=== PATIENT | male | born 1960 | race Caucasian/White ===

== ENCOUNTER 2024-09-20 14:56 | Emergency (ER) | payer OTHER, SELFPAY ==
[2024-09-20 15:06] VITALS: BP 137/83; PULSE 95; RESP 16; TEMP 36.3; O2SAT 100
--- NOTE | 2024-09-20 15:17 | ED.SKABFB ---
HPI - Skin/Abscess/Foreign Bdy General Chief complaint: Skin/Abscess/Foreign Body Stated complaint: RASH Time Seen by Provider: 09/20/24 15:17 Source: patient Mode of arrival: ambulatory Limitations: no limitations History of Present Illness HPI narrative: 63 yo M presents with shingles rash to R side torso for 4 days. All systems reviewed and negative except as noted above. Related Data Home Medications ?Medication ?Instructions ?Recorded ?Confirmed ?Last Taken ?Type No Home Medications 09/20/24 09/20/24 Unknown History Allergies Allergy/AdvReac Type Severity Reaction Status Date / Time No Known Allergies Allergy Verified 09/20/24 15:04 Review of Systems Review of Systems: CONSTITUTIONAL: Denies fever, chills, or sweats. EYES: Denies visual changes, redness, or discharge. ENT: Denies rhinorrhea, congestion, sore throat, or otalgia. CARDIOVASCULAR: Denies chest pain, palpitations, or edema. RESPIRATORY: Denies cough or dyspnea. GASTROINTESTINAL: Denies abdominal pain, nausea, vomiting, or diarrhea. GENITOURINARY: Denies dysuria or hematuria. SKIN: Denies itching. Patient reports painful rash to right torso. MUSCULOSKELETAL: Denies back pain, joint pain, or myalgia. NEUROLOGIC: Denies headache, numbness, or weakness. PSYCHIATRIC: Denies anxiety or depression. All other systems reviewed are negative, except as documented in HPI. PMFSH Social History Social History Smoking status: Never smoker Alcohol intake: current Comments At time of signature, agree with nursing past medical, surgical, social and family history. There is no relevant family history pertinent to the presenting complaint. Exam Narrative: GENERAL: This is a well-nourished, well-developed patient, in no apparent distress. HEAD: normocephalic, atraumatic. EYES: PERRL. Sclera clear/white. Vision is grossly intact. EARS: External ears normal NOSE: External nose normal NECK: Neck supple, non-tender without lymphadenopathy, masses or thyromegaly. CARDIOVASCULAR: Regular rate and rhythm without murmurs, gallops, or rubs. RESPIRATORY: Clear to auscultation. Breath sounds equal bilaterally. No wheezes, rales, or rhonchi. SKIN: warm, Dry, intact, good texture and turgor. erythematous vesicular rash to R side torso extending from naval to middle of back NEURO: awake, alert, and oriented to person, place and time. There were no obvious focal neurologic abnormalities. EXTREMITIES: No joint tenderness, effusion, or edema noted. Course Course Level of Care: Express Care Visit Vital Signs Vital signs: Vital Signs Temperature 36.3 C L 09/20/24 15:06 Pulse Rate 95 09/20/24 15:06 Respiratory Rate 16 09/20/24 15:06 Blood Pressure 137/83 09/20/24 15:06 Pulse Oximetry 100 09/20/24 15:06 Temperature 36.3 C L 09/20/24 15:06 Pulse Rate 95 09/20/24 15:06 Respiratory Rate 16 09/20/24 15:06 Blood Pressure 137/83 09/20/24 15:06 Pulse Oximetry 100 09/20/24 15:06 Reviewed MDM - Skin/Abscess/Foreign Bdy MDM Narrative Medical decision making narrative: Patient is well-appearing, nontoxic. Shingles rash for approximately 4 days. Will prescribe antiviral. Discussed post herpetic neuralgia, will follow up with primary care physician if pain continues. Discussed contagious to patients that have not been vaccinated for chickenpox. Patient voiced understanding. Please be advised this is a medical document. It is intended for [id number] communication. It is written in medical language and may contain unfamiliar abbreviations or verbiage. Medical documents are intended to carry relevant information, facts as evident, and the clinical opinion of the practitioner at the time of the encounter. This report may have been done utilizing a voice recognition system. Attempts have been made to correct errors. However, there may be uncorrected grammatical, spelling, and recognition errors present. The file time of this note does not necessarily represent the time of service. Differential Diagnosis Differential diagnosis: Likely viral exanthem, urticaria, herpes zoster, impetigo and contact dermatitis Discharge Plan Discharge Clinical Impression: Shingles Qualifiers: Herpes zoster complications: without complications Qualified Code(s): B02.9 - Zoster without complications Patient Disposition: Home, Self-Care Condition: Stable Instructions: Shingles (ED) Additional Instructions: Take medications as prescribed. Take Tylenol or ibuprofen every 6-8 hours as needed for pain. Follow-up with your primary care physician if pain from shingles rash is not improving. Patient Language: Kenyan Prescriptions: New valacyclovir 1 gram tablet 1,000 mg PO TID 7 Days Qty: 21 0RF lidocaine 5 % ointment 1 applic topical QID PRN (Reason: shingles rash pain) Qty: 30 0RF methylprednisolone [Medrol (Felipe)] 4 mg tablets,dose pack See Rx Instructions PO .COMPLEX Qty: 21 0RF Rx Instructions: orally per package directions No Action No Home Medications Follow-up/Referrals: PHYSICIAN,INDUSTRIAL REFRIGERATION MECHANIC [Primary Care Provider] - Time of Disposition: 15:29
== END 2024-09-20 15:32 | disposition home or self-care (01) ==
PROVIDERS: Emergency Provider Nurse Practitioner Family
DX: B02.9 Zoster without complications (principal)
CPT/HCPCS: 99213; G0463

== ENCOUNTER 2025-05-09 09:32 | Outpatient (CLI) | payer BC, SELFPAY ==
--- NOTE | ~2025-05-09 | NM_ITS ---
EXAMINATION: NM stress w perf spect multi DATE: 05/09/2025 11:53 INDICATION: Chest pain TECHNIQUE: Rest images were obtained following intravenous administration of 11.2 to mCi Tc99m Myoview. The patient performed an exercise activity. At peak exercise, 35.0 mCi Tc99m tetrofosmin (Myoview) was administered intravenously, and stress images were obtained. Data was reconstructed into short axis and horizontal and vertical long axis SPECT images. Gated SPECT images were also obtained. COMPARISON: January 05, 2012. FINDINGS: On grayscale and color splash images, slight photopenic appearance of the distal anterior and apical region which appears more robust or normalizes on rest images. The remainder the left ventricle demonstrates no compelling evidence of fixed or reversible defect. There is no segmental wall motion abnormality. Left ventricular ejection fraction measures 48%. Ejection fraction of the previous exam was 68%. IMPRESSION: 1. Possible small area of reversible defect or ischemia involving the distal anterior wall and apical region.. 2. Borderline abnormally low left ventricular ejection fraction measuring 48%. Reviewed, dictated and finalized at location A. L PRESS HAND IMPRESSION: 1. Possible small area of reversible defect or ischemia involving the distal an terior wall and apical region.. 2. Borderline abnormally low left ventricular ejection fraction measuring 48%.
--- NOTE | 2025-05-09 10:00 | EST_ITS ---
Patient Info Name: Jamel Serrano Age: 64 years : 1960 Gender: Male Ht: 74 in Wt: 174 lbs BSA: 2.03 m2 HR: 74 bpm BP: 139 / 77 mmHg Exam Date: 05/09/2025 10:00 AM Patient Status: O Admit Date: 05/09/2025 Exam Type: CA stress test treadmill w NM A nuclear stress test was performed. Staff Referring Physician: Eliud Moody Attending Provider: Eliud Moody Exercise Technologist: Nneka Hansen Exercise Physician: Cornelius Green DO Summary 1. 1. Negative Demian exercise stress test for ischemic ST changes by ECG criteria. 2. 2. Reduced functional capacity, achieving 5.3 METs of workload. 3. 3. Appropriate HR response to exercise. 4. 4. Appropriate HR recovery at 1 minute post exercise. 5. 5. Nuclear scan to follow and will be reported separately. Please correlate with it. 6. 6. Patient informed of the above results. Protocol: Demian Stress ECG Details Stage: REST Duration (min): 0 min : 56 sec Speed (mph): 0.0 Grade (%): 0 HR (bpm): 76 SBP (mmHg): 139 DBP (mmHg): 77 METS: --- Stage: REST Duration (min): 6 min : 5 sec Speed (mph): 0.0 Grade (%): 0 HR (bpm): 86 SBP (mmHg): 139 DBP (mmHg): 77 METS: --- Stage: STAGE 1 Duration (min): 1 min : 0 sec Speed (mph): 1.7 Grade (%): 10 HR (bpm): 116 SBP (mmHg): 139 DBP (mmHg): 77 METS: --- Stage: STAGE 1 Duration (min): 2 min : 0 sec Speed (mph): 1.7 Grade (%): 10 HR (bpm): 131 SBP (mmHg): 139 DBP (mmHg): 77 METS: --- Stage: STAGE 1 Duration (min): 3 min : 0 sec Speed (mph): 1.7 Grade (%): 10 HR (bpm): 140 SBP (mmHg): 143 DBP (mmHg): 59 METS: --- Stage: STAGE 2 Duration (min): 0 min : 25 sec Speed (mph): 2.5 Grade (%): 12 HR (bpm): 146 SBP (mmHg): 143 DBP (mmHg): 59 METS: --- Stage: RECOVERY Duration (min): 0 min : 34 sec Speed (mph): 0.0 Grade (%): 0 HR (bpm): 147 SBP (mmHg): 143 DBP (mmHg): 59 METS: --- Stage: RECOVERY Duration (min): 1 min : 34 sec Speed (mph): 0.0 Grade (%): 0 HR (bpm): 124 SBP (mmHg): 143 DBP (mmHg): 59 METS: --- Stage: RECOVERY Duration (min): 2 min : 34 sec Speed (mph): 0.0 Grade (%): 0 HR (bpm): 101 SBP (mmHg): 143 DBP (mmHg): 59 METS: --- Stage: RECOVERY Duration (min): 3 min : 34 sec Speed (mph): 0.0 Grade (%): 0 HR (bpm): 95 SBP (mmHg): 153 DBP (mmHg): 66 METS: --- Stage: RECOVERY Duration (min): 4 min : 34 sec Speed (mph): 0.0 Grade (%): 0 HR (bpm): 92 SBP (mmHg): 153 DBP (mmHg): 66 METS: --- Stage: RECOVERY Duration (min): 5 min : 34 sec Speed (mph): 0.0 Grade (%): 0 HR (bpm): 88 SBP (mmHg): 151 DBP (mmHg): 68 METS: --- Stage: RECOVERY Duration (min): 6 min : 34 sec Speed (mph): 0.0 Grade (%): 0 HR (bpm): 86 SBP (mmHg): 151 DBP (mmHg): 68 METS: --- Stage: RECOVERY Duration (min): 7 min : 3 sec Speed (mph): 0.0 Grade (%): 0 HR (bpm): 89 SBP (mmHg): 141 DBP (mmHg): 70 METS: --- Rest HR: 86 bpm Peak HR: 149 bpm Rest Sys BP: 139 mmHg Peak Sys BP: 153 mmHg Max Pred HR: 157 bpm % Max Pred HR: 95 % Target HR: 133 bpm Max RPP: 22,797 bpm*mmHg Plummer Score: -14 Termination Reason: Reached target heart rate or workload Cardiac Symptoms: Shortness of breath Max ST Seg Deviation: -3.40 mm Total Time: 3 min : 25 sec Rest Terrazas BP: 77 mmHg Peak Terrazas BP: 66 mmHg Angina Score: None Total METS: 5.3 Resting ECG Sinus rhythm. Stress ECG No ST changes. Arrhythmias None. Report Signatures
== END 2025-05-09 09:33 | disposition home or self-care (01) ==
PROVIDERS: PCP Family Medicine; Visit Provider Family Medicine
DX: R06.09 Other forms of dyspnea (principal); R07.89 Other chest pain
CPT/HCPCS: 78452; 93017; A9502

== ENCOUNTER 2025-06-02 01:18 | Day surgery (SDC) | payer BC, SELFPAY ==
[2025-05-30 11:50] VITALS: BMI 22.6
[2025-06-02] VITALS (18 sets, daily range): BP systolic 106–131; BP diastolic 55–87; PULSE 63–87; RESP 12–20; TEMP 36.6; O2SAT 97–100; BMI 21.8
[2025-06-02 07:48] LABS: Hematocrit 41.1 % (42.0-52.0); Hemoglobin 13.9 g/dL (14.0-18.0); Immature Granulocyte Percent A 0.1 % (0-0.5); Lymphocytes Absolute Auto 2.07 K/mm3 (0.9-3.2); Mean Corpuscular HGB Conc 33.8 g/dl (32-36); Mean Corpuscular Hemoglobin 30.4 pg (26-34); Mean Corpuscular Volume 89.9 fl (80-100); Nucleated Red Blood Cells Absolute Auto 0.000 K/mm3 (0.0-0.012); Nucleated Red Blood Cells Perc 0.0 % (0.0-0.2); Platelet Count Result 230 k/mm3 (150-375); Red Blood Count 4.57 M/mm3 (4.6-6.20); White Blood Count 7.5 K/mm3 (4.5-10.0)
[2025-06-02 08:10] LABS: Anion Gap 3 mmol/L (4-12); Blood Urea Nitrogen 23 mg/dL (9-20); Calcium 9.3 mg/dL (8.4-10.2); Carbon Dioxide 28 mmol/L (22-30); Chloride 105 mmol/L (98-107); Estimated CRCL calculation 81 ml/min; Estimated Glomerular Filt Rate > 60; Glucose 166 mg/dL (65-110); Potassium 3.9 mmol/L (3.4-5.0); Sodium 136 mmol/L (137-145)
--- NOTE | 2025-06-02 08:33 | P.SEDATION_ITS ---
Moderate Sedation Note-Pt Data Patient Data Allergies Allergy/AdvReac Type Severity Reaction Status Date / Time No Known Allergies Allergy Verified 05/30/25 11:31 Home Medications ?Medication ?Instructions ?Recorded ?Confirmed ?Type aspirin 81 mg tablet,delayed 81 mg PO DAILY #90 tabs 1 06/28/24 06/02/25 Rx release (Adult Low Dose Aspirin) atorvastatin 40 mg tablet (Lipitor) 40 mg PO QHS #90 t abs 04/28/25 05/30/25 Rx blood sugar diagnostic (Contour #100 ea 04/28/25 Rx Next Test Strips) blood-glucose meter (Contour Next #1 ea 04/28/25 Rx Gen Meter kit) cholecalciferol (vitamin D3) 1,250 1,250 mcg PO WEEKLY #14 caps 04/28/25 05/30/25 Rx mcg (50,000 unit) capsule glipizide 10 mg tablet, extended 10 mg PO DAILY #90 ta bs 04/28/25 05/30/25 Rx release 24 hr lancets 33 gauge #100 ea 04/28/25 Rx metformin 500 mg tablet,extended 500 mg PO BID #180 ta bs 04/28/25 05/30/25 Rx release 24 hr (Glucophage XR) nitroglycerin 0.3 mg sublingual 0.3 mg sublingual Q5M PRN chest 05/12/25 05/30/25 Rx tablet pain #10 tabs Current Medications: Active Medications Sodium Chloride (Normal Saline Iv) 500 mls @ 100 mls/hr IV CONT .Q5H HELGA Sedation/Anesthesia: No previous sedation/anesthesia problems (including family history). [facility] Past Medical History Medical History (Updated 05/12/25 @ 08:05 by Eliud Moody MD) Type 2 diabetes mellitus with hyperglycemia Dyslipidemia Surgical History Surgical History [place] teeth removed (~1978) Family History Family History Father Malignant neoplasm of prostate Sibling Malignant neoplasm of prostate Heart disease Mother Heart disease Social History Social History Smoking status: Never smoker Alcohol intake: current Alcohol use details: Sporatically Substance use: never Substance use type: does not use Lack of Transportation: No Lack of Food: Never True Current Housing: I Have Housing Concerned About Future Housing: No Difficulty Paying Gas/Electric Bills: No Difficulty Paying for Meds: No Currently Unemployed: No Difficulty w/ Childcare or Family Care: No Living arrangements: with family Occupation/Education: occupation Gender identity (if verbalized by the patient): Male Spiritual care concerns: No Agree to blood products: Yes Mod Sed Physical Exam Physical Exam Pre Procedural Exam: Normal: Lungs, Heart Size, Heart Rate and Heart Rhythm Hours since solid foods: 12 Hours since liquid intake: 12 Mallampati Classification: class II Internal Medicine - PN: Obj Da Vital Signs Vital Signs: Vital Signs - 24 hr 06/02/25 07:32 Temperature 36.6 C Pulse Rate 87 Respiratory Rate 20 Blood Pressure 130/78 Pulse Oximetry 100 Oxygen Delivery Room Air Meds/Results Medications: Active Medications Generic Name Dose Route Start Last Admin Trade Name Freq PRN Reason Stop Dose Admin Sodium Chloride 500 mls @ 100 mls/hr 06/02/25 07:00 Normal Saline Iv IV CONT .Q5H HELGA Labs 06/02/25 07:36 06/02/25 07:36 Labs: Laboratory Results - last 24 hr 06/02/25 07:36 WBC 7.5 RBC 4.57 L Hgb 13.9 L Hct 41.1 L MCV 89.9 MCH 30.4 MCHC 33.8 RDW 11.9 Plt Count 230 MPV 9.9 Immature Gran % (Auto) 0.1 Neut % (Auto) 57.1 Lymph % (Auto) 27.7 Blair % (Auto) 10.0 H Eos % (Auto) 3.9 Baso % (Auto) 1.2 Lymph # (Auto) 2.07 Blair # (Auto) 0.8 H Eos # (Auto) 0.3 Baso # (Auto) 0.1 Abs Immat Gran (auto) 0.01 Absolute Neuts (auto) 4.3 Absolute Nucleated RBC 0.000 Nucleated RBC % 0.0 Sodium 136 L Potassium 3.9 Chloride 105 Carbon Dioxide 28 Anion Gap 3 L BUN 23 H Creatinine 0.89 Estim Creat Clear Calc 81 Estimated GFR > 60 Glucose 166 H Calcium 9.3 ASA Classification/Sedation ASA Classification/Sedation ASA Class: III Emergent: No Risks: Risks, benefits and alternatives explained and patient/family accepted plan for sedation. Patient re-evaluated immediately prior to sedation.
--- NOTE | 2025-06-02 08:33 | WPDHPUPDATE1 ---
History and Physical Update Update Date/Time: 06/02/25 08:33 History and Physical has been reviewed, including an updated exam of the patient. There are NO changes in the patient's condition. Risks, benefits, and alternatives have been discussed and questions answered. Patient agrees to proceed with procedure.
--- NOTE | 2025-06-02 09:10 | WPDCARDPROC ---
Cardiac Cath Procedure Note Date of procedure:: 06/02/25 Performing physician:: CATHETERIZATION LABORATORY REPORT Procedure Date: 06/02/2025 Referring Physician: Dr. Heredia Anesthesia: Versed and Fentanyl were ordered and given in my presence at 0847, procedure ended at 0904. Supervision of nurse, Thelma Hayes monitored moderate sedation with 2mg Versed and 50mcg Fentanyl was provided for 17 minutes. Pre-op Diagnosis: Abnormal stress test Post-op Diagnosis: abnormal stress test Procedure(s): Left heart catheterization with coronary angiography Access Site: Right radial artery Brief History and Clinical Indications: 64-year-old man with newly diagnosis diabetes and hyperlipidemia who has been experiencing chest discomfort with subsequent abnormal nuclear stress test was referred for cardiac catheterization with possible PCI. All risks, benefits and alternatives to left heart catheterization with or without percutaneous coronary intervention was discussed at length with the patient. Risk of complications including but not limited to bleeding, infection, arrhythmia, stroke, worsening kidney function, blood loss, groin hematoma, limb loss, emergency coronary artery bypass grafting, and even were discussed with the patient and all questions were answered. The patient understood and wished to proceed. Time out called, patient name, date of , medical record number, allergies, procedure performed, identify Manager Critical Care, patient and staff member concurred with accurate data, procedure carried on. Findings: LEFT HEART CATHETERIZATION FINDINGS: 1. Left main: The left main coronary artery has diffuse 60-80% stenosis. 2. Left anterior descending: The LAD in its mid body at the takeoff of the 2nd diagonal branch, has a 95-99% stenosis (caballero 1, 1, 0). The distal LAD has diffuse 80-90% stenosis. The 2nd diagonal branch is a moderate caliber vessel supplying a moderate size territory. This vessel divides into 2 branches and at its bifurcation there is 95-99% stenosis (caballero 1,1,1). 3. Left circumflex: The left circumflex artery has a subtotal occlusion in its ostium. There are [id number] collaterals. 4. Right coronary artery: The RCA is a large dominant vessel. It has 80% proximal stenosis followed by diffuse 80% distal stenosis. The distal RPDA has 80-90% stenosis. The mid body of the RPL branch has 80-90% stenosis. 5. Left ventricle: A. End-diastolic pressure 8 mmHg. B. LV gram deferred. C. No significant gradient across aortic valve on catheter pullback. 6. Opening AO pressure 120/53 and closing AO pressure 98/63 Description of Procedure: Informed consent signed and placed in the chart. Patient transferred to blood bank laboratory technologist room. Prepped and draped in usual sterile fashion. 2% lidocaine injected subcutaneously in right wrist area. 22-gauge venipuncture catheter used to access the right radial artery with the Seldinger technique under ultrasound guidance. 6-FR slender sheath placed in right radial artery. Nitroglycerin 200mcg, Verapamil 2.5mg, and Heparin 5000U was given intraarterial through the sheath. J wire advanced under fluoroscopy. 5F Ultra diagnostic catheter crossed the aortic valve for LVEDP and aortic valve gradients. After pull back, it was used to engage the right coronary artery. It was switched out for a 5F JL3.5 diagnostic catheter to engage the left main coronary artery. Multiple orthogonal angiogram obtained and reviewed. Hemostasis was achieved by application of TR band. Assessment: Multivessel obstructive CAD Post Operative Condition: Stable No significant blood loss Disposition: Home Plan: Continue aggressive medical therapy. Obtain TTE. CTS consultation for CABG. The above findings were discussed with the referring physician. Marvin Boone Interventional Cardiology
[2025-06-02] MEDS: SODIUM CHLORIDE 0.9% IV 1,000 ML 125 ML IV CONT (09:22)
== END 2025-06-02 13:15 | disposition home or self-care (01) ==
PROVIDERS: PCP Family Medicine; Visit Provider Internal Medicine
PROC: 4A023N7 Measurement of Cardiac Sampling and Pressure, Left Heart, Percutaneous Approach (ICD-10-PCS; CPT 93452; principal; 2025-06-02 08:30)
DX: I25.10 Atherosclerotic heart disease of native coronary artery without angina pectoris (principal); R94.39 Abnormal result of other cardiovascular function study
CPT/HCPCS: 36415; 80048; 85025; 93458; C1769; C1887; C1894; J1644; J2003; J2250; J2305; J3010; J7040